=== PATIENT | female | born 1955 | race Caucasian/White ===

== ENCOUNTER → 2021-06-06 | Outpatient (CLI) | payer MEDICARE ==
[~2021-06-06] MED LIST: ADVAIR 100-501 EACH INH; AUGMENTIN 875-1 EACH PO; AZELAST NASAL137 MC1 NASAL; B-12250 MCG PO; CEPHALEXIN 500500 M3 PO; CLARITIN10 MG; CLEOCIN HCL300 MG PO; DIFLUCAN150 MG PO; FLONASE 0.05%50 MCG NASAL; GAVISCON ES CH1 EAC1 PO; LEVAQUIN 750 M750 MG PO; NORCO 5-325 TA1 EACH PO; NORVASC5 MG PO; OMEPRAZOLE 20 M20 MG PO; ONDANSETRON HCL4 M3 PO; PRAVASTATIN SOD40 MG PO; PREDNISONE 10 M10 M1 PO; PROVENTIL HFA6.7 G1 INH; RETIN-A45 G2; SODIUM BICARBO650 M3 PO; SYNTHROID50 MCG PO; TESSALON200 MG PO; TIZANIDINE HCL4 M1 PO; TUDORZA PRESS400 MCG IH; TYLENOL EX-STR500 M2 PO; ULTRAM 50MG TAB50 MG PO; ZANTAC 150MG T150 M1 PO; ZOFRAN ODT4 MG PO
[2021-06-06 13:05] LABS: CREATININE 0.9 mg/dL (0.6-1.3)
== END ==
LOC: M.LAB 12:00 → M.MRI 13:00
PROVIDERS: ATTEND Surgery
DX: C50.912 Malignant neoplasm of unspecified site of left female breast (principal)

== ENCOUNTER → 2021-06-14 | Day surgery (SDC) | payer MEDICARE ==
[2021-06-14 06:56] LABS: HEMATOCRIT 37.8 % (37.0-47.0); HEMOGLOBIN 12.7 gm/dL (12.0-15.0); MCHC 33.7 g/dL (28.0-37.0); MPV 7.7 fl. (7.2-11.1); RBC 4.24 mil/uL (4.20-5.00); RDW-CV 13.2 % (10.5-14.5); WBC 10.1 thou/uL (4.0-11.0)
[2021-06-14 07:25] LABS: CREATININE 0.9 mg/dL (0.6-1.3); POTASSIUM 3.6 mmol/L (3.5-5.1)
--- NOTE | 2021-06-14 09:57 | EKG ---
[place] [address] ELECTROCARDIOGRAM REPORT Name: ZOLTAN BOYCE Room: [facility]#: [id number] Admission: 06/14/21 Attend Phys: Sandie Underwood, Discharge: Date of : 51 Date of Service: 06/14/21 0745 Report #: [id number] THIS REPORT FOR: //name// [facility] Test Date: 2021-06-14 Test Time: 07:45:22 Pat Name: ZOLTAN BOYCE Department: Room: Gender: F [employer]: [place] : 1955 Requested By: Kal Brooks Order Number: [id number] Reading MD: Shaquille Obrien Measurements Intervals [place] Rate: 81 P: 49 VT: 182 QRS: 33 QRSD: 83 T: 0 QT: 391 QTc: 454 Interpretive Statements Sinus rhythm Nonspecific T abnormalities, anterior leads Compared to ECG 05/16/2013 11:23:54 T-wave abnormality now present ST (T wave) deviation no longer present Possible ischemia no longer present Electronically Signed On 06-14-2021 9:56:53 CDT by Shaquille Obrien [email or web address] <ELECTRONICALLY SIGNED> By: Shaquille Obrien MD, FACC 06/14/21 0956 0745 Shaquille Obrien MD, FAC /EPI
--- NOTE | 2021-06-14 12:16 | OP ---
[address] [address] OPERATIVE REPORT Name: ZOLTAN BOYCE Room: [facility].#: [id number] Admission: 06/14/21 Attend Phys: Sandie Underwood DO Discharge: Date of : 51 Report #: [id number] THIS REPORT FOR: cc: Ajith Reid MD, Tuongvan T. MD Brock, Christie M. DO ~ DATE OF SURGERY: 06/14/2021 PREOPERATIVE DIAGNOSIS: Left breast cancer. POSTOPERATIVE DIAGNOSIS: Left breast cancer. FINDINGS: Normal internal jugular anatomy on ultrasound. Fluoroscopy time was 32 seconds. SURGEON: Sandie Underwood DO PLASTICS SCIENTIST: JAQUELINE Nash. PROCEDURE PERFORMED: Right ultrasound and fluoroscopy-guided chemo port placement with surgeon interpretation of images. ANESTHESIA: LMA and local. ESTIMATED BLOOD LOSS: 5 mL DRAINS: None. SPECIMENS: None. COMPLICATIONS: None. CONDITION: Stable. DISPOSITION: PACU to home. HISTORY OF PRESENT ILLNESS: The patient is a pleasant 66-year-old female who presented to my office with findings of left breast cancer. She was seen by oncology and they have indicated the need for neoadjuvant chemotherapy that she will be needing a chemo port placement. Risks and benefits were discussed in detail and patient agreed to proceed. DESCRIPTION OF PROCEDURE: The patient was brought to the operating room. She was laid supine on the operating table. SCDs were placed on bilateral lower extremities. Ancef was given in the perioperative period. General LMA anesthesia was induced by Anesthesia without difficulty[place] [address] OPERATIVE REPORT Name: ZOLTAN BOYCE Room: [facility]#: [id number] Admission: 06/14/21 Attend Phys: Sandie Underwood DO Discharge: Date of : 51 Report #: [id number] in Trendelenburg. Right neck and chest were prepped and draped in the standard sterile fashion. Timeout was performed to verify patient and procedure. Ultrasound was brought onto the field and the right internal jugular was identified and appeared to be patent and intact. A 10 mL of 0.5% Marcaine were injected over the right internal jugular and along the right chest. Right jugular was accessed with 1 pass of the needle, utilizing the ultrasound, wire passed without difficulty. Needle was removed. Ultrasound was again used to visualize the wire in the internal jugular. Ultrasound was then handed off. Fluoroscopy was brought into the field and the wire was clearly visualized in the superior vena cava. A #15 blade was used to create an incision in the infraclavicular area. Cautery was used to create a pocket. An #11 blade was utilized to make a small jc at the area of our wire. Dilator and breakaway catheter were introduced over the wire. Dilator and wire were removed. Chemo port tubing was introduced. Breakaway catheter was removed. Fluoroscopy was brought into the field to verify that our tubing was in the correct position. Tubing was then tunneled into our previously created pocket without difficulty. Fluoroscopy was again brought onto the field and the tubing was withdrawn until the tip of the catheter was visualized in the superior vena cava. The tubing was connected to the subcutaneous port. Port was accessed utilizing a Brown needle. We had excellent draw and flush. The port was vigorously flushed with 10 mL of injectable saline. It was then hep-locked with 3 mL of pre-prepared heparin solution. The chemo port was sutured to the underlying fascia using two stitches on the left and right side of the chemo port. Wound was closed in a layered fashion using deep and superficial stitches of 3-0 Vicryl in inverted interrupted fashion. Skin wound was closed with a running 4-0 Monocryl. Skin was then cleansed and covered with Dermabond. A small jc on the right neck was also covered with Dermabond. The patient was then allowed to awaken from anesthesia, was extubated and transported to the recovery room with no further difficulties. Counts were correct at the conclusion of the case. <ELECTRONICALLY SIGNED> By: Sandie Underwood DO 06/14/21 1216 0754 [id number] Underwood DO /nt
== END | disposition home or self-care (01) ==
LOC: M.SUR
PROVIDERS: Anesthesiology; ATTEND Surgery
DX: Z45.2 Encounter for adjustment and management of vascular access device (principal); C50.912 Malignant neoplasm of unspecified site of left female breast; Z79.899 Other long term (current) drug therapy; Z88.2 Allergy status to sulfonamides; Z98.890 Other specified postprocedural states

== ENCOUNTER → 2021-06-20 | Outpatient (CLI) | payer MEDICARE ==
--- NOTE | 2021-06-20 09:57 | 2DMMODE ---
[place] [address] 2 D/M-MODE ECHOCARDIOGRAM Name: ZOLTAN BOYCE Room: [facility]#: [id number] Admission: 06/20/21 Attend Phys: Geremias Guerra MD Discharge: Date of : 51 Date of Service: 06/20/21 0957 Report #: [id number] THIS REPORT FOR: cc: Ajith Reid MD, Tuongvan T. MD Blick, David R. MD [facility] ~ APPROVED REPORT Study performed: 06/20/2021 09:25:15 EXAM: Comprehensive 2D, Doppler, and color-flow Echocardiogram Patient Location: Out-Patient BSA: 1.83 HR: 93 bpm BP: 142/82 mmHg Other Information Study Quality: Good Indications Chemo Breast Cancer 2D Dimensions IVSd: 11.54 (7-11mm) LVOT Diam: 19.97 (18-24mm) LVDd: 41.21 mm PWd: 11.28 (7-11mm) Ascending Ao: 30.06 (22-36mm) LVDs: 26.38 (25-40mm) Aortic Root: 26.30 mm Volumes Left Atrial Volume (Systole) LA ESV Index: 15.00 mL/m2 Aortic Valve AoV Peak Tacos.: 1.20 m/s AO Peak Gr.: 5.80 mmHg LVOT Max P.18 mmHg AO Mean Gr.: 3.51 mmHg LVOT Mean P.39 mmHg LVOT Max V: 0.89 m/s AO V2 VTI: 23.31 cm LVOT Mean V: 0.53 m/s KALLI (VTI): 2.49 cm2 LVOT V1 VTI: 18.51 [place] [address] 2 D/M-MODE ECHOCARDIOGRAM Name: ZOLTAN BOYCE Room: [facility]#: [id number] Admission: 06/20/21 Attend Phys: Geremias Guerra MD Discharge: Date of : 51 Date of Service: 06/20/21 0957 Report #: [id number] E/A Ratio: 0.83 MV Decel. Time: 213.41 ms MV E Max Tacos.: 0.68 m/s MV PHT: 61.89 ms MVA (PHT): 3.55 cm2 TDI E/Lateral E': 7.56 E/Medial E': 7.56 Medial E' Tacos.: 0.09 m/s Lateral E' Tacos.: 0.09 m/s Pulmonary Valve PV Peak Tacos.: 0.96 m/s PV Peak Gr.: 3.67 mmHg Left Ventricle The left ventricle is normal size. There is normal LV segmental wall motion. Mild concentric left ventricular hypertrophy. Left ventricular systolic function is normal. The left ventricular ejection fraction is within the normal range. LVEF is 55-60%. Grade I - abnormal relaxation pattern. Right Ventricle The right ventricle is normal size. The right ventricular systolic function is normal. Atria The left atrium size is normal. The right atrium size is normal. Aortic Valve The aortic valve is normal in structure. No aortic regurgitation is present. There is no aortic valvular stenosis. Mitral Valve The mitral valve is normal in structure. There is no mitral valve regurgitation noted. No evidence of mitral valve stenosis. Tricuspid Valve The tricuspid valve is normal in structure. There is no tricuspid valve regurgitation noted. Pulmonic Valve Pulmonic valve is not well visualized. There is no pulmonic valvular [place] [address] 2 D/M-MODE ECHOCARDIOGRAM Name: ZOLTAN BOYCE Room: [facility]#: [id number] Admission: 06/20/21 Attend Phys: Geremias Guerra MD Discharge: Date of : 51 Date of Service: 06/20/21 0957 Report #: [id number] The aortic root is normal in size. IVC is normal in size and collapses >50% with inspiration. Pericardium There is no pericardial effusion. <Conclusion> Mild concentric left ventricular hypertrophy. LVEF is 55-60%. <ELECTRONICALLY SIGNED> By: Sergei Maldonado MD, FACC 06/20/21956 6 6 Sergei Maldonado MD, FACC /INF
== END ==
LOC: M.CRD 09:00
PROVIDERS: ATTEND Internal Medicine Hematology & Oncology
DX: Z01.818 Encounter for other preprocedural examination (principal)

== ENCOUNTER 2021-06-27 07:18 | Emergency (ER) | payer MEDICARE ==
[~2021-06-27] VITALS: Ht 157.5 cm; Wt 81.7 kg
[2021-06-27 08:04] VITALS: BP 165/93
== END 2021-06-27 08:05 | disposition home or self-care (01) ==
LOC: M.ERS 07:18
DX: R04.0 Epistaxis (principal); K21.9 Gastro-esophageal reflux disease without esophagitis; J45.909 Unspecified asthma, uncomplicated; E03.9 Hypothyroidism, unspecified; Z79.899 Other long term (current) drug therapy; Z88.2 Allergy status to sulfonamides

== ENCOUNTER 2021-07-01 20:16 | Emergency (ER) | payer MEDICARE ==
[~2021-07-01] VITALS: Ht 157.5 cm; Wt 81.7 kg
[2021-07-01 20:52] LABS: ABSOLUTE BASOPHILS 0.2 thou/uL (0.0-0.2); ABSOLUTE EOSINOPHILS 0.2 thou/uL (0.0-0.7); ABSOLUTE LYMPHOCYTES 5.4 thou/uL (0.8-5.3); ABSOLUTE MONOCYTES 1.3 thou/uL (0.0-1.2); ABSOLUTE NEUTROPHILS 7.9 thou/uL (1.6-8.1); EOSINOPHILS 1.3 %; HEMATOCRIT 35.3 % (37.0-47.0); HEMOGLOBIN 11.7 gm/dL (12.0-15.0); LYMPHOCYTES 36.2 %; MCH 29.2 pg (26.0-34.0); MCHC 33.2 g/dL (28.0-37.0); MONOCYTES 8.5 %; MPV 7.7 fl. (7.2-11.1); NUCLEATED RBCS 0 /100WBC; PLATELET COUNT* 348 thou/uL (150-400); RBC 4.02 mil/uL (4.20-5.00); RDW-CV 13.1 % (10.5-14.5); WBC 14.9 thou/uL (4.0-11.0)
[2021-07-01 21:04] LABS: APTT 23.1 Seconds (25.0-31.3); INR 0.9; PROTIME 9.7 Seconds (9.20-11.50)
[2021-07-01 21:31] VITALS: BP 148/70
== END 2021-07-01 21:32 | disposition home or self-care (01) ==
LOC: M.ERS 20:16
PROVIDERS: Nurse Practitioner Psychiatric/Mental Health
DX: R04.0 Epistaxis (principal); K21.9 Gastro-esophageal reflux disease without esophagitis; E03.9 Hypothyroidism, unspecified; J45.909 Unspecified asthma, uncomplicated; Z85.3 Personal history of malignant neoplasm of breast; Z98.890 Other specified postprocedural states; Z85.41 Personal history of malignant neoplasm of cervix uteri; Z79.899 Other long term (current) drug therapy; Z88.2 Allergy status to sulfonamides